=== PATIENT | female | born 1980 ===

== ENCOUNTER 2017-02-03 14:57 | Emergency (ER) | payer OTHER ==
[2017-02-03 15:12] VITALS: BP 129/63; PULSE 78; RESP 18; TEMP 98.4; O2SAT 99
--- NOTE | 2017-02-03 15:37 | ED PDOC ---
HPI: Headache Time Seen by Provider: 02/03/17 15:26 Chief Complaint (Nursing): Headache History Per: Patient History/Exam Limitations: no limitations Onset/Duration Of Symptoms: Gradual (3 days), Worse Since (today) Current Symptoms Are (Timing): Still Present Severity: Mild Quality: Dull Preceeding Symptoms: None Associated Symptoms: denies: Photophobia, Blurred Vision, Nausea, Vomiting, Extremity Weakness Additional History Per: Patient Additional Complaint(s): Patient having headache, progressing in pain for 3 days, behind right eye. Patient has nausea. Patient took excedrin today with mild relief. non thunderclap, no n/t/w/gait problems. similar to migrains in the poast with a neg distant mri, the sx are worse today, does have a visual scotoma as a prodrome. Past Medical History Reviewed: Historical Data, Nursing Documentation, Vital Signs Vital Signs: Last Vital Signs Temp 98.4 F 02/03/17 15:10 Pulse 78 02/03/17 15:10 Resp 18 02/03/17 15:10 BP 129/63 02/03/17 15:10 Pulse Ox 99 02/03/17 15:10 - Medical History PMH: No Chronic Diseases - Family History Family History: States: Unknown Family Hx - Living Arrangements Living Arrangements: With Family - Social History Current smoker - smoking cessation education provided: No - Allergies Allergies/Adverse Reactions: Allergies Allergy/AdvReac Type Severity Reaction Status Date / Time No Known Allergies Allergy Verified 02/03/17 15:09 Review of Systems ROS Statement: Except As Marked, All Systems Reviewed And Found Negative Constitutional: Negative for: Fever, Chills Cardiovascular: Negative for: Chest Pain, Palpitations Respiratory: Negative for: Cough, Shortness of Breath Gastrointestinal: Negative for: Nausea, Vomiting, Abdominal Pain Musculoskeletal: Negative for: Neck Pain Neurological: Positive for: Headache. Negative for: Weakness, Numbness, Incoordination, Change in Speech, Confusion, Seizures, Altered Mental Status, Dizziness Physical Exam - Reviewed Nursing Documentation Reviewed: Yes Vital Signs Reviewed: Yes - Physical Exam Appears: Positive for: Uncomfortable Head Exam: Positive for: ATRAUMATIC, NORMAL INSPECTION, NORMOCEPHALIC Eye Exam: Positive for: Normal appearance, EOMI, PERRL Neck: Positive for: Normal, Painless ROM, Supple Cardiovascular/Chest: Positive for: Regular Rate, Rhythm, Chest Non Tender. Negative for: Edema, Gallop, Murmur, Bradycardia, Tachycardia Respiratory: Positive for: Normal Breath Sounds. Negative for: Decreased Breath Sounds, Accessory Muscle Use, Crackles, Rales, Rhonchi, Stridor, Wheezing , Respiratory Distress Pulses-Radial (L): 2+ Pulses-Radial (R): 2+ Gastrointestinal/Abdominal: Positive for: Normal Exam, Bowel Sounds, Soft. Negative for: Tenderness Back: Positive for: Normal Inspection. Negative for: L CVA Tenderness, R CVA Tenderness Extremity: Positive for: Normal ROM. 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 Negative for: Motor/Sensory Deficits, Aphasia, Facial Droop - ECG O2 Sat by Pulse Oximetry: 99 Pulse Ox Interpretation: Normal Disposition - Clinical Impression Clinical Impression: Acute headache - Patient ED Disposition Is Patient to be Admitted: Transfer of Care Counseled Patient/Family Regarding: Studies Performed, Diagnosis - Disposition Disposition Time: 17:04 Condition: STABLE Forms: [employer] (Croatian) Patient Signed Over To: Sadaf Pringle
[2017-02-03] MEDS ORDERED: DiphenhydrAMINE 50 mg/ml Inj IVP STA (16:05)
[2017-02-03] MEDS ORDERED: DiphenhydrAMINE 50 mg/ml Inj ONE (16:21)
--- NOTE | 2017-02-03 17:07 | CT ---
PROCEDURE: CT HEAD WITHOUT CONTRAST. HISTORY: R sided roque COMPARISON: None available. TECHNIQUE: Axial computed tomography images were obtained through the head/brain without intravenous contrast. Radiation dose: Total exam DLP = 779.33 mGy-cm. This CT exam was performed using one or more of the following dose reduction techniques: Automated exposure control, adjustment of the mA and/or kV according to patient size, and/or use of iterative reconstruction technique. FINDINGS: HEMORRHAGE: No intracranial hemorrhage. BRAIN: No mass effect or edema. No atrophy or chronic microvascular ischemic changes. VENTRICLES: Unremarkable. No hydrocephalus. CALVARIUM: Unremarkable. PARANASAL SINUSES: Unremarkable as visualized. No significant inflammatory changes. MASTOID AIR CELLS: Unremarkable as visualized. No inflammatory changes. OTHER FINDINGS: None. IMPRESSION: Normal CT of the Head. No intracranial mass, hemorrhage or evidence of acute infarct.
--- NOTE | 2017-02-03 17:20 | ED PDOC ---
- Laboratory Results Result Diagrams: 02/03/17 16:38 02/03/17 16:38 - ECG O2 Sat by Pulse Oximetry: 99 - Progress ED Course And Treament: 5p Rec'd endorsement from Dr Rubi. Pt with headache, h/o migraines, no neurodeficits. Pending ER workup reassessment and final disposition. On eval pt is sleeping comfortably. Accession No. 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 HISTORY: R sided roque COMPARISON: None available. TECHNIQUE: Axial computed tomography images were obtained through the head/brain without intravenous contrast. Radiation dose: Total exam DLP = 779.33 mGy-cm. This CT exam was performed using one or more of the following dose reduction techniques: Automated exposure control, adjustment of the mA and/or kV according to patient size, and/or use of iterative reconstruction technique. FINDINGS: HEMORRHAGE: No intracranial hemorrhage. BRAIN: No mass effect or edema. No atrophy or chronic microvascular ischemic changes. VENTRICLES: Unremarkable. No hydrocephalus. CALVARIUM: Unremarkable. PARANASAL SINUSES: Unremarkable as visualized. No significant inflammatory changes. MASTOID AIR CELLS: Unremarkable as visualized. No inflammatory changes. OTHER FINDINGS: None. IMPRESSION: Normal CT of the Head. No intracranial mass, hemorrhage or evidence of acute infarct. Re-evaluation Time: 18:00 Condition: Improved Disposition Counseled Patient/Family Regarding: Studies Performed, Diagnosis, Need For Followup, Rx Given - Clinical Impression Clinical Impression: Acute headache - POA Present On Arrival: None - Disposition Referrals: Bud Clarke MD [Staff Provider] - Raman Fontanez MD [Family Provider] - 02/04/17 Disposition: Routine/Home Disposition Time: 18:00 Condition: IMPROVED Prescriptions: Acetaminophen/Butalbital/Caf [Fioricet] 1 tab PO TID PRN #20 tab PRN Reason: Headache Instructions: Acute Headache (ED) Forms: [facility] ED School/Work Excuse
[2017-02-03 17:26] LABS: BASO # 0.1 K/uL (0.0-0.2); BASO % 0.6 % (0.0-2.0); EOS % 0.1 % (0.0-4.0); HEMATOCRIT 39.3 % (34.0-47.0); LYMPH # 3.2 K/uL (1.0-4.3); LYMPH % 27.3 % (20.0-40.0); MEAN CELL VOLUME 98.6 fl (81.0-99.0); MEAN CORPUSCULAR HEMOGLOBIN 32.7 pg (27.0-31.0); MEAN CORPUSCULAR HGB CONC 33.1 g/dL (33.0-37.0); MEAN PLATELET VOLUME 9.3 fl (7.2-11.7); MONO # 0.7 K/uL (0.0-0.8); MONO % 6.3 % (0.0-10.0); NEUT # 7.8 K/uL (1.8-7.0); NEUT % 65.7 % (50.0-75.0); RED CELL DISTRIBUTION WIDTH 12.5 % (11.5-14.5); WHITE BLOOD COUNT 11.8 K/uL (4.8-10.8)
[2017-02-03 17:40] LABS: ALB/GLOB RATIO 1.3 (1.0-2.1); ALKALINE PHOSPHATASE 93 U/L (38-126); ALT/SGPT 22 U/L (9-52); AST/SGOT 24 U/L (14-36); BILIRUBIN,TOTAL 0.3 mg/dl (0.2-1.3); BLOOD UREA NITROGEN 12 mg/dl (7-17); CALCIUM 9.8 mg/dL (8.4-10.2); CARBON DIOXIDE 25 mmol/L (22-30); CHLORIDE 106 mmol/L (98-107); GFR AFRICAN-AMERICAN > 60; GLUCOSE,RANDOM 82 mg/dL (65-105); LIPASE 66 U/L (23-300); POTASSIUM 4.5 MMOL/L (3.6-5.0); SODIUM 143 mmol/l (132-148)
[2017-02-03 17:46] LABS: PARTIAL THROMBOPLASTIN TIME 35.1 Seconds (25.6-37.1)
== END 2017-02-03 18:46 | disposition home or self-care (01) ==
LOC: H.ER 14:57
DX: R51 Headache (principal)
CPT/HCPCS: 70450; 80053; 81025; 83690; 85025; 85610; 85730; 96374; 96375; 99283; J1200; J2765

== ENCOUNTER 2018-03-13 11:37 | Emergency (ER) | payer OTHER ==
[2018-03-13 12:15] VITALS: RESP 18; TEMP 98.4; O2SAT 99
[2018-03-13] MEDS ORDERED: Sodium Chloride 0.9% 1,000 ML IV STA (13:46)
[2018-03-13 14:24] LABS: BASO # 0.1 K/uL (0.0-0.2); BASO % 0.7 % (0.0-2.0); EOS % 0.3 % (0.0-4.0); HEMOGLOBIN 13.6 g/dL (12.0-16.0); LYMPH # 2.9 K/uL (1.0-4.3); LYMPH % 28.9 % (20.0-40.0); MEAN CELL VOLUME 100.5 fl (81.0-99.0); MEAN CORPUSCULAR HEMOGLOBIN 33.1 pg (27.0-31.0); MEAN CORPUSCULAR HGB CONC 32.9 g/dL (33.0-37.0); MEAN PLATELET VOLUME 8.7 fl (7.2-11.7); MONO # 0.6 K/uL (0.0-0.8); MONO % 5.9 % (0.0-10.0); NEUT # 6.4 K/uL (1.8-7.0); NEUT % 64.2 % (50.0-75.0); RBC 4.11 Mil/uL (3.80-5.20); RED CELL DISTRIBUTION WIDTH 12.8 % (11.5-14.5)
[2018-03-13 14:34] LABS: BLOOD UREA NITROGEN 11 mg/dl (7-17); CALCIUM 9.5 mg/dL (8.4-10.2); GFR NON-AFRICAN AMERICAN > 60
--- NOTE | 2018-03-13 15:58 | ED PDOC ---
HPI: Headache Time Seen by Provider: 03/13/18 13:04 Chief Complaint (Nursing): Headache Chief Complaint (Provider): Headache History Per: Patient History/Exam Limitations: no limitations Onset/Duration Of Symptoms: Days Current Symptoms Are (Timing): Still Present Associated Symptoms: Photophobia Additional Complaint(s): 37 year old female presents to the ED with worsening headache for 6 days. Patient reports left-sided headache since Wednesday, which was temporarily relieved with [id number] Excedrin. She also felt like she was having pain to the left eye. Patient admits to prior history of migraines. This morning the pain became more severe, extending to the right side with photophobia, prompting this ED visit. Otherwise she denies any fever, nausea, vomiting, visual loss, or trauma. Patient also states her neck is also tight and sore. No recent travel. No sick contacts. PMD: Raman Fontanez Past Medical History Reviewed: Historical Data, Nursing Documentation, Vital Signs Vital Signs: Last Vital Signs Temp 98.4 F 03/13/18 12:13 Pulse 71 03/13/18 12:13 Resp 18 03/13/18 12:13 BP 115/77 03/13/18 12:13 Pulse Ox 99 03/13/18 12:13 - Medical History PMH: Migraine - Family History Family History: States: Unknown Family Hx - Home Medications Home Medications: Ambulatory Orders Medication Instructions Recorded Acetaminophen/Butalbital/Caf 1 tab PO TID PRN #20 tab 02/03/17 [Fioricet] Ibuprofen [Motrin] 600 mg PO Q6 #28 tab 03/13/18 Metoclopramide [Reglan] 5 mg PO Q6 PRN #10 tab 03/13/18 - Allergies Allergies/Adverse Reactions: Allergies Allergy/AdvReac Type Severity Reaction Status Date / Time No Known Allergies Allergy Verified 02/03/17 15:09 Review of Systems ROS Statement: Except As Marked, All Systems Reviewed And Found Negative Constitutional: Negative for: Fever Eyes: Negative for: Vision Change Cardiovascular: Negative for: Chest Pain Respiratory: Negative for: Shortness of Breath Gastrointestinal: Negative for: Nausea, Vomiting Musculoskeletal: Positive for: Neck Pain (feels tight/stiff). Negative for: Back Pain Neurological: Positive for: Headache, Other (Photophobia). Negative for: Weakness, Numbness, Incoordination, Change in Speech, Altered Mental Status Physical Exam - Reviewed Nursing Documentation Reviewed: Yes Vital Signs Reviewed: Yes - Physical Exam Appears: Positive for: Non-toxic, No Acute Distress Head Exam: Positive for: ATRAUMATIC, NORMAL INSPECTION, NORMOCEPHALIC Skin: Positive for: Normal Color, Warm, Dry Eye Exam: Positive for: EOMI, Normal appearance, PERRL Neck: Positive for: Normal (with no midline tenderness, no nuchal rigidity), Painless ROM, Supple Cardiovascular/Chest: Positive for: Regular Rate, Rhythm. Negative for: Murmur Respiratory: Positive for: Normal Breath Sounds. Negative for: Accessory Muscle Use, Respiratory Distress Pulses-Radial (L): 2+ Pulses-Radial (R): 2+ Gastrointestinal/Abdominal: Positive for: Soft. Negative for: Tenderness, Distended Extremity: Positive for: Normal ROM. 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 Negative for: Motor/Sensory Deficits, Cerebellar Tests, Facial Droop - Laboratory Results Result Diagrams: 03/13/18 14:14 03/13/18 14:14 Urine POC: Negative - ECG O2 Sat by Pulse Oximetry: 99 (RA) Pulse Ox Interpretation: Normal Medical Decision Making Medical Decision Making: Time: 13:43 Initial Impression: Work up for migraine vs. other forms of headache Plan: Administered Reglan, IV fluids, Toradol, and oxygen. If pain unresolved will consider CT of the brain for further evaluation. No neurologic symptoms at this point. Will continue to monitor in the ED. 16:25 Upon provider reevaluation patient reports improvement in symptoms and is tole rating PO. She remains afebrile, AAOx3, with no neurological deficits. Patient will be discharged home and follow up with PMD. There is agreement to discharge plan. Return if symptoms persist or worsen. Scribe Attestation: Documented by Elisa Schmitz, acting as a scribe for Dr. Cornelia Soni MD. Provider Scribe Attestation: All medical record entries made by the Scribe were at my direction and personally dictated by me. I have reviewed the chart and agree that the record accurately reflects my personal performance of the history, physical exam, medical decision making, and the department course for this patient. I have also personally directed, reviewed, and agree with the discharge instructions and disposition. Disposition - Clinical Impression Clinical Impression: Severe headache Counseled Patient/Family Regarding: Diagnosis, Need For Followup - Disposition Referrals: Raman Fontanez MD [Primary Care Provider] - Disposition: Routine/Home Disposition Time: 16:26 Condition: IMPROVED Additional Instructions: Follow up with primary medical doctor in one week. Return to the emergency department if symptoms worsen or if new symptoms develop. Prescriptions: Ibuprofen [Motrin] 600 mg PO Q6 #28 tab Metoclopramide [Reglan] 5 mg PO Q6 PRN #10 tab PRN Reason: Nausea/Vomiting Instructions: Cluster Headache (DC), Tension Headache (DC) Forms: [employer] (Maltese) Print Language: ITALIAN
[2018-03-13 16:10] VITALS: BP 110/66; PULSE 75
== END 2018-03-13 17:05 | disposition home or self-care (01) ==
LOC: SUPCPDRO 11:37 → H.ER 11:37
DX: R51 Headache (principal)
CPT/HCPCS: 80048; 81025; 85025; 96361; 96374; 96375; 99283; J1885; J2765; J7030